=== PATIENT | female | born 1960 | race Caucasian/White ===

== ENCOUNTER → 2016-04-16 | Outpatient (CLI) | payer OTHER ==
[~2016-04-16] MED LIST: ADIPEX-P37.5 MG PO; ALDACTONE 25MG25 M1 PO; BIOTIN1 MG PO; BLACK COHOSH PO; DUO-KAPS1 CAP PO; ELDERBERRY200 MG PO; FAMVIR 500500 MG/TAB PO; FISH OIL500 MG PO; KELP TABLETS1 TAB PO; LIDODERM PATCH TP; NATURE'S BLEND500 M1 PO; NORCO 325 MG-51 TAB PO; PERCOCET 325 MG1 TA2 PO; PREDNISONE10 MG PO; PREDNISONE20 MG PO; ST JOHN S WORT PO; TREXALL10 MG PO; TYLENOL 325MG325 MG PO; ULTRAM 50MG TAB50 MG; VITAMIN D31000 I1 PO
== END ==
LOC: COL.CARD 09:29
DX: I49.9 Cardiac arrhythmia, unspecified (principal)